=== PATIENT | male | born 1950 | race Caucasian/White ===

== ENCOUNTER 2022-09-23 11:46 | Emergency (ER) | payer OTHER ==
[2022-09-23] MEDS ORDERED: ACETAMINOPHEN 500 MG TAB ONE (12:29)
--- NOTE | 2022-09-23 12:33 | RAD REPORT ---
EXAM DESCRIPTION: Shoulder Right 2 View - 09/23/2022 12:23 pm CLINICAL HISTORY: PAIN COMPARISON: No comparisons TECHNIQUE: Internal and external rotation views of the right shoulder were obtained. FINDINGS: There is no fracture or dislocation. AC joint mild degenerative changes. Glenohumeral jimmy culation appears intact. No suspicious osseous lesions. The included lungs demonstrate chronic interstitial changes, suggestive of COPD. IMPRESSION: No acute osseous abnormality. Findings as above. .
--- NOTE | 2022-09-23 12:37 | RAD REPORT ---
EXAM DESCRIPTION: CT - [id number] - 09/23/2022 12:25 pm CLINICAL HISTORY: TRAUMA COMPARISON: No comparisons TECHNIQUE: Axial thin cut noncontrast CT images of the head were obtained. Axial thin cut noncontrast CT images of the cervical spine were obtained. Multiplanar reformatted images were generated and reviewed. All CT scans are performed using dose optimization technique as appropriate and may include automated exposure control or mA/KV adjustment according to patient size. FINDINGS: CT HEAD WITHOUT CONTRAST: No acute hemorrhage, hydrocephalus or extra-axial collection is identified.No areas of brain edema or midline shift. Right parietal scalp swelling and small hematoma. The paranasal sinuses and mastoids are clear.The calvarium is intact. CT CERVICAL SPINE WITHOUT CONTRAST: No fracture or subluxation. Straightening of normal cervical lordosis which may be positional or seco ndary to muscle spasm. Multilevel degenerative changes, contributing to at least moderate bilateral n eural foraminal narrowing at C3-4 and C4-5, and to lesser degree bilaterally at C6-7. 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 Fusion deformities along the first and seco nd cervical ribs bilaterally. No prevertebral soft tissues swelling is identified. At least moderate centrilobular emphysematous changes more pronounced in the left apex. IMPRESSION: No acute traumatic intracranial or cervical spine findings. Right parietal scalp swelling and small hematoma. 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
--- NOTE | 2022-09-23 12:57 | EDPHYS ---
Physician Documentation [facility] Name: Bubba Gonzalez Age: 71 yrs Sex: Male : 1950 Arrival Date: 09/23/2022 Time: 11:46 Bed 7 Private MD: ED Physician Santiago Adhikari HPI: 09/23 12:15 This 71 yrs old Male presents to ER via Ambulatory with complaints of Head rt Injury-Adult, Shoulder Injury. 12:15 Patient presents to the ED with head injury. Patient was moving plywood when it fell rt backwards causing him to fall back and hit his head on the back of concrete. He denies loss of consciousness, states that there was bleeding at that region. Denies nausea, vomiting. Patient also report a right shoulder pain at the shoulder blade, denies other injury or other acute complaints. Symptoms are moderate severity, no other aggravating alleviating factors. Historical: - Allergies: 11:52 No Known Allergies; aa5 - Home Meds: 11:52 baby aspirin [Active]; atorvastatin oral [Active]; aa5 - PMHx: 11:52 Hypercholesterolemia; aa5 - Immunization history:: Adult Immunizations unknown. - Social history:: Smoking status: Patient/guardian denies using tobacco, Stopped _ months ago 6. ROS: 12:16 Constitutional: Negative for fever, chills, and weight loss, Neck: Negative for injury, rt pain, and swelling, Cardiovascular: Negative for chest pain, palpitations, and edema, Respiratory: Negative for shortness of breath, cough, wheezing, and pleuritic chest pain, Abdomen/GI: Negative for abdominal pain, nausea, vomiting, diarrhea, and constipation, Back: Negative for injury and pain, Psych: Negative for depression, anxiety, suicide ideation, homicidal ideation, and hallucinations. 12:16 MS/extremity: Positive for pain, Negative for deformity. 12:16 Skin: Positive for laceration(s). 12:16 Neuro: Positive for headache, Negative for loss of consciousness. Exam: 12:16 Constitutional: This is a well developed, well nourished patient who is awake, alert, rt and in no acute distress. Neck: Trachea midline, no thyromegaly or masses palpated, and no cervical lymphadenopathy. Supple, full range of motion without nuchal rigidity, or vertebral point tenderness. No Meningismus. Chest/axilla: Normal chest wall appearance and motion. Nontender with no deformity. No lesions are appreciated. Cardiovascular: Regular rate and rhythm with a normal S1 and S2. No gallops, murmurs, or rubs. Normal PMI, no JVD. No pulse deficits. Respiratory: Lungs have equal breath sounds bilaterally, clear to auscultation and percussion. No rales, rhonchi or wheezes noted. No increased work of breathing, no retractions or nasal flaring. Abdomen/GI: Soft, non-tender, with normal bowel sounds. No distension or tympany. No guarding or rebound. No evidence of tenderness throughout. Back: No spinal tenderness. No costovertebral tenderness. Full range of motion. Skin: Warm, dry with normal turgor. Normal color with no rashes, no lesions, and no evidence of cellulitis. Neuro: Awake and alert, GCS 15, oriented to person, place, time, and situation. Cranial nerves II-XII grossly intact. Motor strength 5/5 in all extremities. Sensory grossly intact. Cerebellar exam normal. Normal gait. Psych: Awake, alert, with orientation to person, place and time. Behavior, mood, and affect are within normal limits. 12:16 Head/face: 2 cm laceration to the occipital region, no active bleeding, no foreign bodies, no other external evidence of trauma. 12:16 Musculoskeletal/extremity: Mild tenderness posteriorly on right shoulder, no deformities noted. Vital Signs: 11:50 BP 215 / 117; Pulse 83; Resp 18 S; Temp 98.1(TE); Pulse Ox 99% on R/A; Weight 77.11 kg aa5 (R); Height 6 ft. 0 in. (R); 12:40 BP 170 / 96; Pulse 88; Resp 18; Pulse Ox 100% on R/A; mb9 11:50 Body Mass Index 23.06 (77.11 kg, 182.88 cm) aa5 [place] Coma Score: 11:50 Eye Response: spontaneous(4). Motor Response: obeys commands(6). Verbal Response: aa5 oriented(5). Total: 15. Laceration: 13:16 Wound Repair of 2cm ( 0.8in ) subcutaneous laceration to scalp. Linear shaped.. Distal rt neuro/vascular/tendon intact. Anesthesia: Local anesthetic administered with 1 mls of 1% lidocaine. Wound prep: Copious irrigation. Skin closed with 3 [place] using staple gun. Patient tolerated well. MDM: 11:54 Patient medically screened. rt 13:16 Differential diagnosis: Laceration of Intracranial bleed-. Data reviewed: vital signs, rt nurses notes. Independent interpretation of the following test(s) in the Emergency Department CT Scan: My interpretation is No hemorrhage seen on my interpretation of CT scan images. Counseling: I had a detailed discussion with the patient and/or guardian regarding: the historical points, exam findings, and any diagnostic results supporting the discharge/admit diagnosis, the presence of at least one elevated blood pressure reading (>120/80) during this emergency department visit, radiology results, the need for outpatient follow up. Response to treatment: the patient's symptoms have markedly improved after treatment. 09/23 12:08 Order name: CT Head C Spine; Complete Time: 12:38 rt 09/23 12:08 Order name: Shoulder Right (2 View) XRAY; Complete Time: 12:38 rt 09/23 12:08 Order name: Wound Care; Complete Time: 12:19 rt Administered Medications: 12:36 Drug: Acetaminophen PO 1000 mg Route: PO; mb9 12:46 Follow up: Response: No adverse reaction mb9 12:59 Drug: Lidocaine Infiltration (1 %) 5 ml Volume: 5 ml; Route: Infiltration; mb9 Disposition Summary: 09/23/22 12:56 Discharge Ordered Location: Home rt Problem: new rt Symptoms: have improved rt Condition: Stable rt Diagnosis - Laceration without foreign body of scalp rt Followup: rt - With: Private Physician - When: 10 - 14 days - Reason: Staple/Suture removal Discharge Instructions: - Discharge Summary Sheet rt - Laceration Care, Adult rt Forms: - Medication Reconciliation Form rt - Thank You Letter rt - Antibiotic Education rt - Prescription Opioid Use rt - Patient Portal Instructions rt Signatures: Dispatcher [employer] Joy Venegas RN RN [email or web address] Rehana Silverio RN RN mb9 Santiago Adhikari MD MD rt Corrections: (The following items were deleted from the chart) 11:53 11:52 Home Meds: None; aa5 aa5 11:53 11:52 PMHx: None; aa5 aa5
--- NOTE | 2022-09-23 12:57 | ER ---
Nurse's Notes [facility] Name: Bubba Gonzalez Age: 71 yrs Sex: Male : 1950 Arrival Date: 09/23/2022 Time: 11:46 Bed 7 Private MD: Diagnosis: Laceration without foreign body of scalp Presentation: 09/23 11:50 Chief complaint: Patient states: "I had about 10 sheets of stacked plywood that I was aa5 holding and they just started coming toward me so I fell and the plywood fell on me, I am not sure what I hit my head on". Pt c/o head pain and right shoulder pain. Coronavirus screen: At this time, the client does not indicate any symptoms associated with coronavirus-19. Ebola Screen: Patient denies travel to an Ebola-affected area in the 21 days before illness onset. Mechanism of Injury: resulted from fall. Initial Sepsis Screen: Does the patient meet any 2 criteria? No. Patient's initial sepsis screen is negative. Does the patient have a suspected source of infection? No. Patient's initial sepsis screen is negative. Risk Assessment: Do you want to hurt yourself or someone else? Patient reports no desire to harm self or others. 11:50 Method Of Arrival: Ambulatory aa5 11:50 Acuity: OK 2 aa5 Historical: - Allergies: 11:52 No Known Allergies; aa5 - Home Meds: 11:52 baby aspirin [Active]; atorvastatin oral [Active]; aa5 - PMHx: 11:52 Hypercholesterolemia; aa5 - Immunization history:: Adult Immunizations unknown. - Social history:: Smoking status: Patient/guardian denies using tobacco, Stopped _ months ago 6. Screenin:12 [facility] ED Fall Risk Assessment (Adult) History of falling in the last 3 months, mb9 including since admission No falls in past 3 months (0 pts) Confusion or Disorientation No (0 pts) Intoxicated or Sedated No (0 pts) Impaired Gait No (0 pts) Mobility Assist Device Used No (0 pt) Altered Elimination No (0 pt) Score/Fall Risk Level 0 - 2 = Low Risk Oriented to surroundings, Maintained a safe environment, Educated pt \\T\\ family on fall prevention, incl call for assistance when getting out of bed. Abuse screen: Denies threats or abuse. Nutritional screening: No deficits noted. Tuberculosis screening: No symptoms or risk factors identified. Assessment: 12:10 General: Appears in no apparent distress. Behavior is calm, cooperative. Pain: mb9 Complains of pain in posterior scalp Pain does not radiate. Neuro: [place] Agitation-Sedation Scale (RASS): 0 - Alert and Calm Level of Consciousness is awake, alert, obeys commands, Oriented to person, place, time, situation, Appropriate for age Pupils are PERRLA, Reports headache occipital area. Cardiovascular: Patient's skin is warm and dry. Respiratory: Airway is patent Respiratory effort is even, unlabored, Respiratory pattern is regular, symmetrical. GI: Patient currently denies nausea, vomiting. Derm: Derm: Skin is pink, warm \\T\\ dry. Musculoskeletal: Range of motion: intact in all extremities. Injury Description: Laceration sustained to posterior scalp is jagged, 0.5 to 2.5 cm long, not bleeding. Vital Signs: 11:50 BP 215 / 117; Pulse 83; Resp 18 S; Temp 98.1(TE); Pulse Ox 99% on R/A; Weight 77.11 kg aa5 (R); Height 6 ft. 0 in. (R); 12:40 BP 170 / 96; Pulse 88; Resp 18; Pulse Ox 100% on R/A; mb9 11:50 Body Mass Index 23.06 (77.11 kg, 182.88 cm) aa5 [place] Coma Score: 11:50 Eye Response: spontaneous(4). Motor Response: obeys commands(6). Verbal Response: aa5 oriented(5). Total: 15. ED Course: 11:47 Patient arrived in ED. mr 11:52 Triage completed. aa5 11:52 Arm band placed on. aa5 11:54 Santiago Adhikari MD is Attending Physician. rt 12:10 Rehana Silverio RN is Primary Nurse. mb9 12:12 Placed in gown. Bed in low position. Call light in reach. Side rails up X 1. Client mb9 placed on continuous cardiac and pulse oximetry monitoring. NIBP monitoring applied. 12:25 Shoulder Right (2 View) XRAY In Process Unspecified. EDMS 12:27 CT Head C Spine In Process Unspecified. EDMS 12:59 No provider procedures requiring assistance completed. mb9 12:59 Patient did not have IV access during this emergency room visit. mb9 Administered Medications: 12:36 Drug: Acetaminophen PO 1000 mg Route: PO; mb9 12:46 Follow up: Response: No adverse reaction mb9 12:59 Drug: Lidocaine Infiltration (1 %) 5 ml Volume: 5 ml; Route: Infiltration; mb9 Medication: 12:12 VIS not applicable for this client. mb9 Outcome: 12:56 Discharge ordered by MD. rt 12:59 Discharged to home ambulatory. mb9 12:59 Condition: stable 12:59 Discharge instructions given to patient, Instructed on discharge instructions, follow up and referral plans. Demonstrated understanding of instructions, follow-up care. 13:07 Patient left the ED. mb9 Signatures: Dispatcher [employer] ED PepperRehana james Audri RN RN aa5 Rehana Silverio RN RN mb9 Santiago Adhikari MD MD rt Corrections: (The following items were deleted from the chart) 11:53 11:52 Home Meds: None; aa5 aa5 11:53 11:52 PMHx: None; aa5 aa5 12:00 11:50 Chief complaint: Patient states: "I had about 10 sheets of plywood that I was aa5 holding up and they just started coming toward me so I fell and the plywood fell on me, I am not sure what I hit my head on". Pt c/o head pain and right shoulder pain. aa5
[2022-09-23] MEDS ORDERED: LIDOCAINE 1% MPF 5 ML VIAL ONE (12:58)
[2022-09-23 13:42] VITALS: BP 215/117; TEMP 98.1; O2SAT 99
== END 2022-09-23 13:07 | disposition home or self-care (01) ==
LOC: ER 11:46
PROC: 0HQ0XZZ Repair Scalp Skin, External Approach (ICD-10-PCS; principal; 2022-09-23)
DX: S01.01XA Laceration without foreign body of scalp, initial encounter (principal); M25.511 Pain in right shoulder; R51.9 Headache, unspecified; E78.00 Pure hypercholesterolemia, unspecified
CPT/HCPCS: 70450; 72125; 73030; 99284; 12001; J2001